=== PATIENT | male | born 2000 | race Caucasian/White ===

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

== ENCOUNTER 2022-08-22 19:49 | Day surgery (SDC) | payer SELFPAY ==
[2022-08-22] MEDS ORDERED: Sodium Chloride 0.9% 1,000 ML IV ONE ×2 (20:39→22:56)
[2022-08-22 21:22] LABS: CARBON DIOXIDE,CO2 30.7 mmol/L (21.0-32.0); POTASSIUM,K 4.5 mmol/L (3.5-5.1)
[2022-08-22] MEDS ORDERED: Iopamidol 755 MG/ML 500 ML Multipack Bottle IVPUSH ONE (21:40)
[2022-08-22 22:20] LABS: CORONAVIRUS COVID-19 NAA NEGATIVE (NEGATIVE); INFLUENZA A NAA NEGATIVE (NEGATIVE); INFLUENZA B NAA NEGATIVE (NEGATIVE)
[2022-08-22] MEDS ORDERED: metroNIDAZOLE/Normal Saline 500 MG in Premix Bag 1 BAG IV ONE (22:31)
[2022-08-22] MEDS ORDERED: cefTRIAXone 2 GM in Premix Bag 1 BAG IV ONE (22:31)
[2022-08-22] MEDS ORDERED: Sodium Chloride 0.9% 10 ML Syringe FLUSH PRN (23:32)
[2022-08-22] MEDS ORDERED: Sodium Chloride 0.9% 2.5 ML Syringe FLUSH PRN (23:32)
[2022-08-22] MEDS ORDERED: Sodium Chloride 0.9% 20 ML SDV IV PRN (23:32)
[2022-08-22] MEDS ORDERED: Ondansetron 4 MG/2 ML SDV IVPUSH PRN (23:32)
[2022-08-22] MEDS ORDERED: HYDROmorphone 2 MG/ML Syringe IVPUSH PRN (23:32)
[2022-08-22] MEDS ORDERED: diphenhydrAMINE 50 MG/ML SDV IVPUSH PRN (23:32)
[2022-08-22] MEDS ORDERED: Acetaminophen/oxyCODONE 325-5 MG Tab PO PRN (23:32)
[2022-08-22] MEDS ORDERED: Lactated Ringers 1,000 ML IV SCH (23:45)
[2022-08-23] MEDS: Ketorolac 30 MG/ML SDV IVPUSH SCH ×3 (00:33→11:59)
[2022-08-23] MEDS ORDERED: Sugammadex Sodium 200 MG/2 ML VIAL ONE (07:35)
[2022-08-23] MEDS ORDERED: Lidocaine 2% 5 ML SDV ONE (07:35)
[2022-08-23] MEDS ORDERED: Rocuronium Bromide 50 MG/5 ML Syringe ONE (07:35)
[2022-08-23] MEDS ORDERED: Ketorolac 30 MG/ML SDV ONE (07:35)
[2022-08-23] MEDS ORDERED: Dexamethasone 4 MG/ML 5 ML MDV ONE (07:35)
[2022-08-23] MEDS ORDERED: Morphine 2 MG/ML SYRINGE IVPUSH PRN (07:36)
[2022-08-23] MEDS ORDERED: HYDROmorphone 1 MG/ML Syringe IVPUSH PRN (07:36)
[2022-08-23] MEDS ORDERED: Albuterol 0.083% 2.5 MG/3 ML Neb Soln NEB PRN (07:36)
[2022-08-23] MEDS ORDERED: Ondansetron 4 MG/2 ML SDV IVPUSH PRN (07:36)
[2022-08-23] MEDS ORDERED: Metoclopramide 10 MG/2 ML SDV IVPUSH PRN (07:36)
[2022-08-23] MEDS ORDERED: fentaNYL 100 MCG/2 ML SDV ONE (07:36)
[2022-08-23] MEDS ORDERED: fentaNYL 50 MCG/ML SDV IVPUSH PRN (07:36)
[2022-08-23] MEDS ORDERED: Propofol 200 MG/20 ML SDV ONE (07:36)
[2022-08-23] MEDS ORDERED: Naloxone 0.4 MG/ML SDV IVPUSH PRN (07:36)
[2022-08-23] MEDS ORDERED: Ropivacaine 0.5% 5 MG/ML 30 ML SDV ONE (07:44)
[2022-08-23] MEDS ORDERED: Bupivacaine 0.25%/EPINEPHrine 1:200,000 10 ML SDV ONE (07:44)
[2022-08-23] MEDS ORDERED: Dexmedetomidine 200 MCG/2 ML SDV ONE (07:46)
[2022-08-23] MEDS ORDERED: Water For Injection, Sterile 20 ML ONE (07:46)
[2022-08-23] MEDS ORDERED: Bupivacaine 0.5% 30 ML SDV ONE (07:52)
[2022-08-23] MEDS ORDERED: metroNIDAZOLE/Normal Saline 500 MG in Premix Bag 1 BAG IV SCH (08:00)
[2022-08-23] MEDS ORDERED: cefTRIAXone 2 GM/50 ML BAG IV SCH (21:00)
== END 2022-08-23 17:41 | disposition home or self-care (01) ==
LOC: MW.ED 19:49 → MW.MS 22:32 → UNDOADMOB 22:32 → MW.SDS 23:32 → UNDODISOB 08-23 17:41
PROVIDERS: ATTEND Surgery
DX: K35.33 Acute appendicitis with perforation, localized peritonitis, and gangrene, with abscess (principal); F17.210 Nicotine dependence, cigarettes, uncomplicated; Z20.822 Contact with and (suspected) exposure to COVID-19; Z98.890 Other specified postprocedural states; Z79.899 Other long term (current) drug therapy
CPT/HCPCS: 0240U; 36415; 44970; 74177; 80053; 81003; 82947; 85025; 96361; 96365; 96375; 99285; J0696; J1100; J1885; J2405; J2704; J2795; J3010; J3490; J7030; J7120; Q9967; 00840; 64488